=== PATIENT | female | born 1960 | race African-American/Black ===

== ENCOUNTER 2018-12-31 12:03 | Emergency (ER) | payer SELFPAY ==
[~2018-12-31] VITALS: Ht 160 cm; Wt 61.9 kg
[2018-12-31] MEDS ORDERED: GLIP10TA PO (12:44)
[2018-12-31] MEDS ORDERED: BASA100I SC (12:44)
[2018-12-31] MEDS ORDERED: HumuLIN R (REGULAR) INSULIN (NovoLIN R) **100U/ML** PER UNIT As Ordered ONE (12:53)
[2018-12-31] MEDS ORDERED: GLIP10TA18 PO ×2 (12:55→14:44)
[2018-12-31] MEDS ORDERED: INSULANT SC (12:55)
[2018-12-31] MEDS ORDERED: HumuLIN R (REGULAR) INSULIN (NovoLIN R) **100U/ML** PER UNIT IV ONE (13:00)
[2018-12-31] MEDS ORDERED: NS 1,000 ML IV ONE (13:00)
[2018-12-31 13:10] LABS: VENOUS BASE EXCESS 0.9 (-2.0-2.0); VENOUS HCO3 27.5 MEQ/L (23.0-27.0); VENOUS O2 SATURATION 49.7 % (60.0-80.0); VENOUS PARTIAL PRESSURE CO2 51.4 mmHg (38.0-50.0); VENOUS PARTIAL PRESSURE O2 28.3 mmHg (30.0-50.0); VENOUS PH 7.347 UNITS (7.330-7.430); VENOUS TOTAL CO2 29.1 MEQ/L (24.0-28.0)
[2018-12-31 13:15] LABS: BASO % 0.4 % (0.0-1.0); EOS # 0.1 10^3/uL (0.0-0.5); EOS % 1.3 % (0.0-3.0); HEMATOCRIT 43.8 % (36.0-47.0); HEMOGLOBIN 14.6 g/dl (12.0-15.5); LYMPH # 1.5 10^3/uL (1.5-5.0); LYMPH % 26.9 % (24.0-44.0); MEAN CORPUSCULAR HEMOGLOBIN 31.2 pg (27.0-33.0); MEAN CORPUSCULAR HGB CONC 33.3 g/dl (32.0-36.5); MEAN CORPUSCULAR VOLUME 93.6 fl (80.0-96.0); MONO # 0.4 10^3/uL (0.0-0.8); MONO % 7.6 % (0.0-5.0); NEUTROPHILS # 3.5 10^3/uL (1.5-8.5); NEUTROPHILS % 63.6 % (36.0-66.0); PLATELET COUNT, AUTOMATED 151 10^3/uL (150-450); RED BLOOD COUNT 4.68 10^6/uL (4.00-5.40); WHITE BLOOD COUNT 5.5 10^3/uL (4.0-10.0)
[2018-12-31 13:42] LABS: HEMOGLOBIN A1c 11.5 %
[2018-12-31 13:48] LABS: ACETONE/KETONE 1.16 MG/DL (<2.81); BLOOD UREA NITROGEN 18 MG/DL (7-18); CALCIUM LEVEL 9.1 MG/DL (8.5-10.1); CARBON DIOXIDE LEVEL 29 MEQ/L (21-32); CHLORIDE LEVEL 95 MEQ/L (98-107); CREATININE FOR GFR 1.09 MG/DL (0.55-1.30); GLOMERULAR FILTRATION RATE > 60.0 (>51); GLUCOSE, FASTING 481 MG/DL (70-100); POTASSIUM SERUM 4.7 MEQ/L (3.5-5.1); SODIUM LEVEL 132 MEQ/L (136-145)
[2018-12-31 14:30] VITALS: BP 148/89
[2018-12-31] MEDS ORDERED: LANTINJ4 SC (14:44)
== END 2018-12-31 14:51 | disposition home or self-care (01) ==
LOC: M ED 12:03
DX: E11.65 Type 2 diabetes mellitus with hyperglycemia (principal); I10 Essential (primary) hypertension; Z79.899 Other long term (current) drug therapy; Z79.4 Long term (current) use of insulin

== ENCOUNTER 2019-02-13 17:56 | Emergency (ER) | payer SELFPAY ==
[~2019-02-13] VITALS: Ht 160 cm; Wt 62.5 kg
[~2019-02-13 17:56] MED LIST: BASA100I SC; GLIP10TA PO; GLIP10TA18 PO; INSULANT SC; LANTINJ4 SC
[2019-02-13] MEDS ORDERED: GLIP10TA18 PO (20:09)
[2019-02-13] MEDS ORDERED: MIRA3350 PO (20:09)
[2019-02-13] MEDS ORDERED: BASA100I SC (20:09)
[2019-02-13 20:15] VITALS: BP 146/87
== END 2019-02-13 20:16 | disposition home or self-care (01) ==
LOC: M ED 17:56
DX: Z76.0 Encounter for issue of repeat prescription (principal); E11.9 Type 2 diabetes mellitus without complications; K59.00 Constipation, unspecified; J45.909 Unspecified asthma, uncomplicated; Z79.4 Long term (current) use of insulin

== ENCOUNTER 2019-03-27 16:24 | Emergency (ER) | payer BC, SELFPAY ==
[~2019-03-27] VITALS: Ht 157.5 cm; Wt 60.7 kg
[~2019-03-27 16:24] MED LIST changes: +MIRA3350 PO
[2019-03-27 18:44] LABS: HEMATOCRIT 42.3 % (36.0-47.0); HEMOGLOBIN 13.7 g/dl (12.0-15.5); MEAN CORPUSCULAR HEMOGLOBIN 30.4 pg (27.0-33.0); MEAN CORPUSCULAR HGB CONC 32.4 g/dl (32.0-36.5); PLATELET COUNT, AUTOMATED 162 10^3/uL (150-450); WHITE BLOOD COUNT 5.3 10^3/uL (4.0-10.0)
[2019-03-27 19:12] LABS: ALBUMIN 3.6 GM/DL (3.2-5.2); ALT/SGPT 21 U/L (12-78); BILIRUBIN,DIRECT 0.1 MG/DL (0.0-0.2); BILIRUBIN,TOTAL 0.5 MG/DL (0.2-1.0); BLOOD UREA NITROGEN 16 MG/DL (7-18); CALCIUM LEVEL 9.1 MG/DL (8.5-10.1); CARBON DIOXIDE LEVEL 31 MEQ/L (21-32); CHLORIDE LEVEL 104 MEQ/L (98-107); CREATININE FOR GFR 0.92 MG/DL (0.55-1.30); GLOMERULAR FILTRATION RATE > 60.0 (>51); GLUCOSE, FASTING 401 MG/DL (70-100); LIPASE 116 U/L (73-393); POTASSIUM SERUM 4.2 MEQ/L (3.5-5.1); SODIUM LEVEL 140 MEQ/L (136-145); TOTAL PROTEIN 7.4 GM/DL (6.4-8.2)
[2019-03-27] MEDS ORDERED: BASA100I SC ×2 (19:47→19:53)
[2019-03-27] MEDS ORDERED: MIRA3350 PO ×2 (19:47→19:53)
[2019-03-27] MEDS ORDERED: VENTAER INH ×2 (19:47→19:53)
[2019-03-27] MEDS ORDERED: GLIP10TA18 PO ×2 (19:47→19:53)
[2019-03-27 19:55] VITALS: BP 145/69
== END 2019-03-27 19:56 | disposition home or self-care (01) ==
LOC: M ED 16:24
DX: E11.65 Type 2 diabetes mellitus with hyperglycemia (principal)

== ENCOUNTER 2019-05-06 15:37 | Emergency (ER) | payer BC ==
[~2019-05-06] VITALS: Ht 160 cm; Wt 62.2 kg
[~2019-05-06 15:37] MED LIST changes: +VENTAER INH
[2019-05-06] MEDS ORDERED: NS 1,000 ML IV ONE (16:15)
[2019-05-06 16:24] LABS: VENOUS BASE EXCESS 2.4 (-2.0-2.0); VENOUS HCO3 29.5 MEQ/L (23.0-27.0); VENOUS O2 SATURATION 68.9 % (60.0-80.0); VENOUS PARTIAL PRESSURE CO2 55.6 mmHg (38.0-50.0); VENOUS PARTIAL PRESSURE O2 38.5 mmHg (30.0-50.0); VENOUS PH 7.342 UNITS (7.330-7.430); VENOUS STANDARD HCO3 25.8 MEQ/L; VENOUS TOTAL CO2 31.2 MEQ/L (24.0-28.0)
[2019-05-06 16:33] LABS: BASO % 0.5 % (0.0-1.0); EOS # 0.1 10^3/uL (0.0-0.5); EOS % 1.3 % (0.0-3.0); HEMATOCRIT 40.8 % (36.0-47.0); HEMOGLOBIN 13.9 g/dl (12.0-15.5); LYMPH # 2.1 10^3/uL (1.5-5.0); LYMPH % 33.7 % (24.0-44.0); MEAN CORPUSCULAR HEMOGLOBIN 31.2 pg (27.0-33.0); MEAN CORPUSCULAR HGB CONC 34.1 g/dl (32.0-36.5); MEAN CORPUSCULAR VOLUME 91.7 fl (80.0-96.0); MONO # 0.5 10^3/uL (0.0-0.8); MONO % 7.9 % (0.0-5.0); NEUTROPHILS # 3.5 10^3/uL (1.5-8.5); NEUTROPHILS % 56.4 % (36.0-66.0); PLATELET COUNT, AUTOMATED 160 10^3/uL (150-450); RED BLOOD COUNT 4.45 10^6/uL (4.00-5.40); WHITE BLOOD COUNT 6.1 10^3/uL (4.0-10.0)
[2019-05-06 16:34] LABS: OSMOLALITY SERUM 299 MOSM/KG (275-295)
[2019-05-06 17:02] LABS: ACETONE/KETONE 1.97 MG/DL (<2.81); ALBUMIN 3.6 GM/DL (3.2-5.2); ALT/SGPT 26 U/L (12-78); BILIRUBIN,DIRECT 0.2 MG/DL (0.0-0.2); BILIRUBIN,TOTAL 0.8 MG/DL (0.2-1.0); CK-MB VALUE MASS 3.7 NG/ML (<3.6); CPK CREATINE PHOSPHOKINASE 197 U/L (26-192); LIPASE 94 U/L (73-393); MAGNESIUM LEVEL 1.9 MG/DL (1.8-2.4); MB/CK RELATIVE INDEX 1.88 (< OR =4); PHOSPHORUS LEVEL 3.1 MG/DL (2.5-4.9); TOTAL PROTEIN 7.5 GM/DL (6.4-8.2); TROPONIN I < 0.02 NG/ML (< 0.10)
--- NOTE | 2019-05-06 17:36 | ECGEPIP ---
[facility] - ED Test Date: 2019-05-06 Pat Name: FAISAL CHRIS Department: Room: - Gender: Female Disability Rater: vyes : 1960 Requested By: AYAAN BORGES Order Number: [id number] Reading MD: Ayaan Dumas Measurements Intervals [place] Rate: 69 P: 53 ND: 159 QRS: -27 QRSD: 90 T: 125 QT: 397 QTc: 427 Interpretive Statements SINUS RHYTHM BORDERLINE LEFT AXIS DEVIATION VOLTAGE CRITERIA FOR LVH NONSPECIFIC T-WAVE ABNORMALITY Baseline artifact Comparison tracing not on file Electronically Signed on 05-06-2019 17:36:17 EDT by Ayaan Dumas
[2019-05-06 18:00] LABS: BLOOD UREA NITROGEN 12 MG/DL (7-18); CALCIUM LEVEL 8.9 MG/DL (8.8-10.2); CARBON DIOXIDE LEVEL 29 MEQ/L (21-32); CHLORIDE LEVEL 98 MEQ/L (98-107); CREATININE FOR GFR 0.89 MG/DL (0.55-1.30); GLOMERULAR FILTRATION RATE > 60.0 (>45); GLUCOSE, FASTING 353 MG/DL (70-100); POTASSIUM SERUM 3.8 MEQ/L (3.5-5.1); SODIUM LEVEL 134 MEQ/L (136-145)
[2019-05-06 18:05] LABS: VENOUS BASE EXCESS 3.4 (-2.0-2.0); VENOUS HCO3 30.4 MEQ/L (23.0-27.0); VENOUS O2 SATURATION 54.2 % (60.0-80.0); VENOUS PARTIAL PRESSURE CO2 57.2 mmHg (38.0-50.0); VENOUS PARTIAL PRESSURE O2 30.2 mmHg (30.0-50.0); VENOUS PH 7.344 UNITS (7.330-7.430); VENOUS STANDARD HCO3 26.4 MEQ/L; VENOUS TOTAL CO2 32.2 MEQ/L (24.0-28.0)
[2019-05-06 18:15] VITALS: BP 130/71
[2019-05-06] MEDS ORDERED: BASA100I SC (18:21)
[2019-05-06] MEDS ORDERED: GLIP10TA18 PO (18:21)
[2019-05-06] MEDS ORDERED: VENTAER INH (18:21)
[2019-05-06] MEDS ORDERED: KEFL500C17 PO (18:21)
--- NOTE | 2019-05-07 13:09 | REP ---
REASON: Diabetic ketoacidosis. PRIORS: None. FINDINGS: The technique utilized in obtaining the radiograph has magnified the cardiac silhouette and accentuated the interstitial markings. The superior mediastinal structures are midline. The cardiac silhouette is unremarkable in size, shape, and position. The diaphragmatic surfaces of the lungs are regular, and the costophrenic angles are clear. The pulmonary montejo are clear. The imaged osseous structures are intact. IMPRESSION: There is no acute cardiopulmonary disease. Electronically Signed by Denzel Ibanez DO 05/07/2019 01:23 P
== END 2019-05-06 18:30 | disposition home or self-care (01) ==
LOC: M ED 15:37
DX: Z76.0 Encounter for issue of repeat prescription (principal); E11.65 Type 2 diabetes mellitus with hyperglycemia; N39.0 Urinary tract infection, site not specified; J45.909 Unspecified asthma, uncomplicated

== ENCOUNTER 2019-08-20 12:23 | Emergency (ER) | payer BC ==
[~2019-08-20] VITALS: Ht 160 cm; Wt 62.0 kg
[~2019-08-20 12:23] MED LIST changes: +KEFL500C17 PO
[2019-08-20 12:31] VITALS: BP 135/75
[2019-08-20] MEDS ORDERED: BASA100I SC (13:19)
[2019-08-20] MEDS ORDERED: GLIP10TA18 PO (13:19)
== END 2019-08-20 13:37 | disposition home or self-care (01) ==
LOC: M ED 12:23
DX: E11.65 Type 2 diabetes mellitus with hyperglycemia (principal)

== ENCOUNTER 2019-10-02 13:22 | Emergency (ER) | payer BC | END 2019-10-02 14:55 | disposition home or self-care (01) | LOC: M ED 13:22 | DX: Z76.0 Encounter for issue of repeat prescription (principal); E11.9 Type 2 diabetes mellitus without complications; Z79.4 Long term (current) use of insulin ==

== ENCOUNTER 2019-12-12 09:10 | Emergency (ER) | payer BC, MEDICAID, OTHER, SELFPAY ==
[~2019-12-12] VITALS: Ht 160 cm; Wt 69.1 kg
[2019-12-12] MEDS ORDERED: BASA100I SC (11:43)
[2019-12-12] MEDS ORDERED: GLIP10TA18 PO (11:43)
[2019-12-12 11:52] VITALS: BP 124/74
== END 2019-12-12 11:54 | disposition home or self-care (01) ==
LOC: M ED 09:10
DX: Z76.0 Encounter for issue of repeat prescription (principal); E11.65 Type 2 diabetes mellitus with hyperglycemia; I10 Essential (primary) hypertension; Z79.899 Other long term (current) drug therapy

== ENCOUNTER → 2020-01-23 | Outpatient (REF) | payer OTHER ==
[2020-01-23 14:02] LABS: BASO % 0.5 % (0.0-1.0); EOS % 0.5 % (0.0-3.0); HEMATOCRIT 40.8 % (36.0-47.0); HEMOGLOBIN 12.9 g/dl (12.0-15.5); LYMPH # 2.3 10^3/uL (1.5-5.0); LYMPH % 34.4 % (24.0-44.0); MEAN CORPUSCULAR HEMOGLOBIN 30.2 pg (27.0-33.0); MEAN CORPUSCULAR HGB CONC 31.6 g/dl (32.0-36.5); MEAN CORPUSCULAR VOLUME 95.6 fl (80.0-96.0); MONO # 0.5 10^3/uL (0.0-0.8); MONO % 7.8 % (0.0-5.0); NEUTROPHILS # 3.7 10^3/uL (1.5-8.5); NEUTROPHILS % 56.6 % (36.0-66.0); PLATELET COUNT, AUTOMATED 154 10^3/uL (150-450); RED BLOOD COUNT 4.27 10^6/uL (4.00-5.40); WHITE BLOOD COUNT 6.6 10^3/uL (4.0-10.0)
[2020-01-23 14:19] LABS: HEMOGLOBIN A1c 9.6 %
[2020-01-23 14:38] LABS: ALBUMIN 3.5 GM/DL (3.2-5.2); ALT/SGPT 51 U/L (12-78); BILIRUBIN,TOTAL 0.8 MG/DL (0.2-1.0); BLOOD UREA NITROGEN 17 MG/DL (7-18); CALCIUM LEVEL 9.7 MG/DL (8.8-10.2); CARBON DIOXIDE LEVEL 29 MEQ/L (21-32); CHLORIDE LEVEL 107 MEQ/L (98-107); CHOLESTEROL LEVEL 244 MG/DL (<200); CHOLESTEROL RISK RATIO 2.711 (<5); GLOMERULAR FILTRATION RATE > 60.0 (>45); GLUCOSE, FASTING 93 MG/DL (70-100); HDL CHOLESTEROL 90 MG/DL (>40); LDL CHOLESTEROL 144 MG/DL (<100); NON-HDL-C 154 MG/DL; POTASSIUM SERUM 4.8 MEQ/L (3.5-5.1); SODIUM LEVEL 141 MEQ/L (136-145); TOTAL PROTEIN 7.4 GM/DL (6.4-8.2); TRIGLYCERIDES LEVEL 51 MG/DL (<150)
[2020-01-23 14:43] LABS: VITAMIN B12 LEVEL 1323 PG/ML (247-911)
== END ==
LOC: M SFHCPLAZ 10:50
PROVIDERS: ATTEND Physician Assistant Medical
DX: E11.42 Type 2 diabetes mellitus with diabetic polyneuropathy (principal); Z13.220 Encounter for screening for lipoid disorders; Z12.11 Encounter for screening for malignant neoplasm of colon

== ENCOUNTER → 2020-01-31 | Outpatient (CLI) | payer OTHER ==
--- NOTE | 2020-01-31 14:59 | REPMRS ---
Patient History The patient states she has not had a clinical breast exam in over a year. Patient is postmenopausal. No known family history of cancer. Patient states she had a mammogram years ago in [place] and it's no longer available [facility] Mammo: January 31, 2020 - Exam #: [id number] Bilateral CC and MLO view(s) were taken. Technologist: Darlene Grayson, Technologist No prior studies available for comparison. FINDINGS: The breast tissue is heterogeneously dense. This may lower the sensitivity of mammography. The Volpara volumetric breast density category is: C. There is no evidence of dominant mass, architectural distortion, or grouped microcalcification typical of malignancy. 3-D tomosynthesis shows no additional findings. Assessment: BI-RADS/ACR category 1 mammogram. Negative Mammogram. Recommendation Routine screening mammogram of both breasts in 1 year (for women over age 40). This patient's [facility] Lifetime Breast Cancer RIsk is estimated at 9.5 %. This mammogram was interpreted with the aid of an FDA-approved computer-aided dectection system. Electronically Signed By: Juvencio Jimenez MD 01/31/20 [id number]
== END ==
LOC: M WHC 12:36
PROVIDERS: ATTEND Physician Assistant Medical
DX: Z12.31 Encounter for screening mammogram for malignant neoplasm of breast (principal)

== ENCOUNTER → 2020-02-15 | Outpatient (REF) | payer OTHER | LOC: M SFHCPLAZ 10:26 | PROVIDERS: ATTEND Physician Assistant Medical | DX: E11.42 Type 2 diabetes mellitus with diabetic polyneuropathy (principal) ==

== ENCOUNTER → 2020-03-28 | Outpatient (REF) | payer OTHER | LOC: M SFHCWAGY 12:59 | PROVIDERS: ATTEND Nurse Practitioner Family | DX: Z12.4 Encounter for screening for malignant neoplasm of cervix (principal) ==

== ENCOUNTER → 2020-05-01 | Outpatient (REF) | payer OTHER ==
[2020-05-01 11:08] LABS: ALBUMIN 3.5 GM/DL (3.2-5.2); ALT/SGPT 28 U/L (12-78); BILIRUBIN,TOTAL 0.8 MG/DL (0.2-1.0); BLOOD UREA NITROGEN 15 MG/DL (7-18); CALCIUM LEVEL 9.8 MG/DL (8.8-10.2); CARBON DIOXIDE LEVEL 28 MEQ/L (21-32); CHLORIDE LEVEL 106 MEQ/L (98-107); CHOLESTEROL LEVEL 183 MG/DL (<200); CHOLESTEROL RISK RATIO 2.652 (<5); CPK CREATINE PHOSPHOKINASE 427 U/L (26-192); GLOMERULAR FILTRATION RATE > 60.0 (>45); GLUCOSE, FASTING 131 MG/DL (70-100); HDL CHOLESTEROL 69 MG/DL (>40); LDL CHOLESTEROL 102 MG/DL (<100); NON-HDL-C 114 MG/DL; POTASSIUM SERUM 4.5 MEQ/L (3.5-5.1); SODIUM LEVEL 140 MEQ/L (136-145); TOTAL PROTEIN 7.4 GM/DL (6.4-8.2); TRIGLYCERIDES LEVEL 60 MG/DL (<150)
[2020-05-01 11:12] LABS: CREATININE, URINE 59.6 MG/DL; MALB URINE SIEMENS 17.9 MG/L
[2020-05-01 20:55] LABS: HEMOGLOBIN A1c 10.4 %
== END ==
LOC: M PLALAB 08:58
PROVIDERS: ATTEND Physician Assistant Medical
DX: E11.42 Type 2 diabetes mellitus with diabetic polyneuropathy (principal)

== ENCOUNTER → 2020-06-12 | Outpatient (REF) | payer OTHER ==
[2020-06-12 17:59] LABS: INR 1.02; PROTHROMBIN TIME 13.6 SECONDS (12.5-14.3)
[2020-06-12 18:00] LABS: PARTIAL THROMBOPLASTIN TIME 31.4 SECONDS (24.2-38.5)
[2020-06-12 18:01] LABS: BASO % 0.3 % (0.0-1.0); EOS # 0.2 10^3/uL (0.0-0.5); EOS % 2.9 % (0.0-3.0); HEMATOCRIT 41.3 % (36.0-47.0); HEMOGLOBIN 13.2 g/dl (12.0-15.5); LYMPH # 1.9 10^3/uL (1.5-5.0); LYMPH % 27.6 % (24.0-44.0); MEAN CORPUSCULAR HEMOGLOBIN 30.9 pg (27.0-33.0); MEAN CORPUSCULAR VOLUME 96.7 fl (80.0-96.0); MONO # 0.8 10^3/uL (0.0-0.8); NEUTROPHILS # 3.9 10^3/uL (1.5-8.5); NEUTROPHILS % 58.1 % (36.0-66.0); PLATELET COUNT, AUTOMATED 157 10^3/uL (150-450); RED BLOOD COUNT 4.27 10^6/uL (4.00-5.40); WHITE BLOOD COUNT 6.8 10^3/uL (4.0-10.0)
[2020-06-12 18:26] LABS: ALBUMIN 3.4 GM/DL (3.2-5.2); ALT/SGPT 54 U/L (12-78); BILIRUBIN,TOTAL 0.5 MG/DL (0.2-1.0); BLOOD UREA NITROGEN 15 MG/DL (7-18); CALCIUM LEVEL 8.8 MG/DL (8.8-10.2); CARBON DIOXIDE LEVEL 31 MEQ/L (21-32); CHLORIDE LEVEL 103 MEQ/L (98-107); CHOLESTEROL LEVEL 203 MG/DL (<200); CHOLESTEROL RISK RATIO 2.506 (<5); CPK CREATINE PHOSPHOKINASE 424 U/L (26-192); CREATININE FOR GFR 0.84 MG/DL (0.55-1.30); GLOMERULAR FILTRATION RATE > 60.0 (>45); GLUCOSE, FASTING 240 MG/DL (70-100); HDL CHOLESTEROL 81 MG/DL (>40); LDL CHOLESTEROL 111 MG/DL (<100); NON-HDL-C 122 MG/DL; POTASSIUM SERUM 4.3 MEQ/L (3.5-5.1); SODIUM LEVEL 139 MEQ/L (136-145); TOTAL PROTEIN 7.2 GM/DL (6.4-8.2); TRIGLYCERIDES LEVEL 53 MG/DL (<150)
[2020-06-12 19:03] LABS: HEMOGLOBIN A1c 10.2 %
== END ==
LOC: M SFHCPLAZ 15:11
PROVIDERS: ATTEND Physician Assistant Medical
DX: E11.42 Type 2 diabetes mellitus with diabetic polyneuropathy (principal); E78.00 Pure hypercholesterolemia, unspecified; J30.2 Other seasonal allergic rhinitis; H25.9 Unspecified age-related cataract

== ENCOUNTER → 2020-09-19 | Outpatient (CLI) | payer OTHER | LOC: M PLALAB 15:28 | PROVIDERS: ATTEND Physician Assistant Medical | DX: R74.8 Abnormal levels of other serum enzymes (principal) ==

== ENCOUNTER 2020-09-23 18:54 | Emergency (ER) | payer OTHER ==
[~2020-09-23] VITALS: Ht 170.2 cm; Wt 64.0 kg
[2020-09-23] MEDS ORDERED: METF-839 PO (20:24)
[2020-09-23] MEDS ORDERED: ATOR1TAB21 PO (20:24)
[2020-09-23] MEDS ORDERED: INSU100I28 SQ (20:24)
[2020-09-24 01:30] VITALS: BP 150/71
== END 2020-09-24 02:59 | disposition left against medical advice (07) ==
LOC: M ED 18:54
DX: Z53.29 Procedure and treatment not carried out because of patient's decision for other reasons (principal)

== ENCOUNTER → 2020-10-09 | Outpatient (CLI) | payer OTHER ==
[~2020-10-09] MED LIST changes: +ATOR1TAB21 PO; +INSU100I28 SQ; +METF-839 PO
== END ==
LOC: M PLALAB 14:43
PROVIDERS: ATTEND Physician Assistant Medical
DX: E11.51 Type 2 diabetes mellitus with diabetic peripheral angiopathy without gangrene (principal)

== ENCOUNTER → 2021-05-23 | Outpatient (CLI) | payer OTHER | LOC: M WHC 13:55 | PROVIDERS: ATTEND Physician Assistant Medical | DX: Z12.31 Encounter for screening mammogram for malignant neoplasm of breast (principal) ==